=== PATIENT | male | born 1985 | race Caucasian/White ===

== ENCOUNTER 2019-07-05 17:51 | Emergency (ER) | payer SELFPAY ==
[~2019-07-05] VITALS: Ht 185.4 cm; Wt 127.0 kg
[2019-07-05] MEDS ORDERED: HYDROCODONE/APAP 10MG-325MG TAB PO ONE (18:15)
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
[2019-07-06 02:48] VITALS: BP 132/74
== END 2019-07-05 22:00 | disposition home or self-care (01) ==
LOC: ER 17:51
DX: S80.01XA Contusion of right knee, initial encounter (principal); S00.93XA Contusion of unspecified part of head, initial encounter; V23.4XXA Motorcycle driver injured in collision with car, pick-up truck or van in traffic accident, initial encounter; Y92.488 Other paved roadways as the place of occurrence of the external cause
CPT/HCPCS: 70450